=== PATIENT | female | born 1965 | race African-American/Black ===

== ENCOUNTER 2020-11-02 13:25 | Emergency (ER) | payer OTHER ==
[~2020-11-02] VITALS: Ht 165.1 cm; Wt 127.0 kg
[2020-11-02] MEDS ORDERED: PERCOCET PO (14:16)
[2020-11-02] MEDS ORDERED: PREDNISONE 20 M20 M1 PO (14:16)
[2020-11-02 14:17] VITALS: BP 177/88
== END 2020-11-02 14:18 | disposition home or self-care (01) ==
LOC: M.ERS 13:25
DX: M10.031 Idiopathic gout, right wrist (principal); M19.90 Unspecified osteoarthritis, unspecified site; I10 Essential (primary) hypertension; Z88.6 Allergy status to analgesic agent; Z88.5 Allergy status to narcotic agent; Z88.8 Allergy status to other drugs, medicaments and biological substances

== ENCOUNTER 2021-03-25 10:26 | Emergency (ER) | payer OTHER ==
[~2021-03-25] VITALS: Ht 165.1 cm; Wt 117.9 kg
[~2021-03-25 10:26] MED LIST: PERCOCET PO; PREDNISONE 20 M20 M1 PO
[2021-03-25] MEDS ORDERED: APAP W/CODEINE1 TA2 PO (14:27)
[2021-03-25] MEDS ORDERED: MEDROLDOSEPACK PO (14:27)
[2021-03-25] MEDS ORDERED: INDOMETHACIN 5050 M1 PO (14:27)
[2021-03-25 14:37] VITALS: BP 180/80
== END 2021-03-25 14:38 | disposition home or self-care (01) ==
LOC: M.ERS 10:26
DX: M10.072 Idiopathic gout, left ankle and foot (principal); M10.071 Idiopathic gout, right ankle and foot; I10 Essential (primary) hypertension; Z86.16 Personal history of COVID-19; Z88.6 Allergy status to analgesic agent; Z88.8 Allergy status to other drugs, medicaments and biological substances